=== PATIENT | female | born 1995 | race Caucasian/White ===

== ENCOUNTER 2018-12-20 04:30 | Inpatient (IN) | payer BC ==
[2018-12-20] VITALS (24 sets, daily range): BP systolic 87–121; BP diastolic 50–72
[~2018-12-20] VITALS: Ht 167.6 cm; Wt 98.2 kg
[2018-12-20] MEDS ORDERED: DOCUSATE SODIUM 100 MG CAP PO PRN (05:15)
[2018-12-20] MEDS ORDERED: ACETAMINOPHEN TAB 650MG DOSE (2X325MG) PO PRN (05:15)
[2018-12-20] MEDS ORDERED: CALCIUM GLUCONATE 1,000 MG in D5W MINI-BAG PLUS 100 ML IV PRN (05:15)
[2018-12-20] MEDS ORDERED: ONDANSETRON 4MG/2ML VIAL (J2405) IV PRN (05:15)
[2018-12-20] MEDS ORDERED: PRENTAB55 PO (05:17)
[2018-12-20] MEDS ORDERED: MAG Sulf (OBGYN) 20GM/500ML 20,000 MG in APPROPRIATE DILUENT 1 EA IV SCH (05:23)
[2018-12-20] MEDS ORDERED: LR 1,000 ML IV SCH (05:30)
--- NOTE | 2018-12-20 06:22 | HPE ---
DATE OF ADMISSION: 12/20/2018 HISTORY: Lurdes is a 23-year-old, 2, para 0-0-1-0, at 33-3/7 weeks gestation with an expected date of confinement (EDC) of 02/04/2019, based on last menstrual period and confirmed by ultrasound at 7 weeks gestation. She presents to [facility] today as a transfer from [facility] for contractions. She reports that she has been having tightening since evening that has not changed in intensity and feels like pelvic pressure. She denies vaginal bleeding or leakage of fluid. The fetus has been active. Her care was initiated at [facility] in the first trimester. Her course was complicated by Rh negative status and renal pyelectasis. OBSTETRICAL HISTORY: Spontaneous miscarriage. OBSTETRICAL LABS: MSAFP negative. Antibody screen negative. Hemoglobin in the third trimester 11.3. Cystic fibrosis analysis negative for mutation. GDS 131. Hepatitis B surface antigen nonreactive. Hepatitis C antibody nonreactive. HIV no results documented. Rubella immune. Syphilis nonreactive. Gonorrhea and chlamydia negative. Toxoplasmosis negative. TSH normal. Blood type is A negative. GBS status is unknown at this time. PAST MEDICAL HISTORY: Noncontributory. SURGERIES: None. FAMILY HISTORY: Insulin dependent diabetes, hypertension. SOCIAL HISTORY: The patient is single, however, father of the baby and her mom are present at bedside and supportive. She denies smoking, alcohol use and drug use. Denies history of any sexually transmitted infections. ALLERGIES: No known drug allergies. CURRENT MEDICATIONS: Include vitamin. OBJECTIVE: Temperature 93, pulse 89, respirations 16, blood pressure (BP) is 112/60. She is alert and oriented times three. She is in no apparent distress. heart rate is 125 with moderate variability, positive accelerations, no decelerations observed. Contractions are mild to palpation and approximately every 4-6 minutes since she has arrived. Ultrasound performed at [facility] demonstrates cephalic presentation. Cervical length was performed, however, it was done transabdominally therefore not a valid result. No transvaginal was performed. She received indomethacin for tocolysis as well as 4 grams magnesium sulfate loading dose and is currently on 2 grams per hour. There is no Khan catheter in place. She reached nifedipine as well for tocolysis 10 mg. Her urinalysis (UA) was normal. fibronectin was not performed as she had engaged in intercourse in the last 24 hours. Sterile Vaginal Exam: 1 cm dilated, no effacement, ballottable presentation, posterior and firm texture, no bloody show. ASSESSMENT: Intrauterine at 33-3/7 weeks. heart rate category one. contractions. PLAN: Admit to observation status. Continued the 2 grams per hour magnesium. GBS collection. Insert Khan catheter. Keep IV fluids at 125 mL total. I did discuss with the patient her presentation and that likely she is having contractions versus labor. She has received one betamethasone injection at 2040. She will be observed throughout the day today and likely have a repeat vaginal exam. May consider discharge if continued no cervical change. The patient, her partner and her mom have had all of their questions answered and understand the plan of care and are in agreement. Dr. Watson made aware of the patient's status.
[2018-12-20] MEDS ORDERED: PRENATAL VITAMINS CHEWABLE TABLET PO SCH (09:00)
[2018-12-20] MEDS ORDERED: BETAMETHASONE SOLUSPAN 6MG/ML INJ 5ML (J0702) IM ONE (19:30)
--- NOTE | 2018-12-23 13:19 | DSES ---
DATE OF ADMISSION: 12/20/2018 DATE OF DISCHARGE: 12/20/2018 DISCHARGE DIAGNOSIS: labor. PROCEDURES PERFORMED WHILE IN HOSPITAL: 1. Magnesium sulfate. 2. Tocolysis. DISCHARGE CONDITION: Stable. HISTORY AND HOSPITAL COURSE: Ms. Moran is a 21-year-old, 2, para 0, who presented at 32 weeks, 3 days estimated gestational age as a transfer from [facility] for labor and contractions. She presented on magnesium sulfate and with cervical dilation of 1 cm. She received a complete course of steroids for lung maturity. Magnesium sulfate was stopped approximately 6 hours prior to her discharge. She was reexamined with unchanged cervix at 1 cm, long, -3 station. She had a reactive nonstress test (NST) and few contractions on tocometer. PHYSICAL EXAMINATION ON DATE OF DISCHARGE: Her vital signs are stable. She is afebrile. She has a category 1 heart rate tracing. Rare contractions noted on tocometer. General appearance is well-appearing, no acute distress. Her abdomen was gravid, nontender. Her cervical examination she was 1 cm dilated with no effacement. DISCHARGE INSTRUCTIONS: 1. 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 2. She was provided with labor precautions as well as kick count instructions. 3. To remain on pelvic rest and light duty.
== END 2018-12-20 21:00 | disposition home or self-care (01) | DRG 563 ==
LOC: M LDO 04:30 → M LDI 04:31 → OBSVTOIN 05:06 → M LDI 20:15
PROVIDERS: ADMIT Advanced Practice Midwife; ATTEND Advanced Practice Midwife
DX: O60.03 Preterm labor without delivery, third trimester (principal); Z3A.33 33 weeks gestation of pregnancy